=== PATIENT | female | born 1975 | race African-American/Black ===

== ENCOUNTER 2017-07-31 08:12 | Emergency (ER) | payer OTHER ==
[2017-07-31 08:19] VITALS: BP 121/80; PULSE 89; TEMP 98; BMI 28.2
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
[2017-07-31] MEDS ORDERED: TETANUS AND DIPHTHERIA TOXOID 0.5 ML DISP.SYRIN IM ONE (09:37)
== END 2017-07-31 09:32 | disposition home or self-care (01) ==
LOC: JERFT 08:12
PROC: 3E0234Z Introduction of Serum, Toxoid and Vaccine into Muscle, Percutaneous Approach (ICD-10-PCS; principal; 2017-07-31)
DX: M79.642 Pain in left hand (principal); Y04.1XXA Assault by human bite, initial encounter; Y93.89 Activity, other specified; Y92.89 Other specified places as the place of occurrence of the external cause; Y99.8 Other external cause status; Y07.03 Male partner, perpetrator of maltreatment and neglect
CPT/HCPCS: 73130-TC-LT; 84703; 90471; 90715; 99281-25

== ENCOUNTER 2019-01-26 10:45 | Emergency (ER) | payer OTHER ==
[2019-01-26 10:54] VITALS: BP 120/73; PULSE 81; TEMP 98.5; BMI 28.2
[2019-01-26 11:39] LABS: HCG,QUALITATIVE URINE Positive
[2019-01-26 12:04] LABS: EPI CELLS 4.2 /HPF (0-5/HPF); URINE APPEARANCE CLEAR; URINE BACTERIA 3.4 /hpf (NEGATIVE); URINE BILIRUBIN NEGATIVE (NEGATIVE); URINE CASTS 6 /hpf (0-8); URINE COLOR YELLOW; URINE GLUCOSE (UA) NEGATIVE (NEGATIVE); URINE KETONE NEGATIVE (NEGATIVE); URINE LEUK ESTERASE 2+ (NEGATIVE); URINE NITRITE NEGATIVE (NEGATIVE); URINE PROTEIN NEGATIVE (NEGATIVE); URINE WBC 10 /hpf (0-5)
[2019-01-26 12:36] LABS: URINE RBC 23.8 /hpf (0-4)
[2019-01-26 12:37] LABS: YEAST NONE SEEN (NEGATIVE)
--- NOTE | 2019-01-26 12:38 | PDOC ---
History of Present Illness - General Chief Complaint: Vaginal Sxs Stated Complaint: VAGINAL ISSUE Time Seen by Provider: 01/26/19 10:54 History Source: Patient Exam Limitations: No Limitations Past History - Travel Traveled outside of the country in the last 30 days: No Close contact w/someone who was outside of country & ill: No - Past Medical History Allergies/Adverse Reactions: Allergies Allergy/AdvReac Type Severity Reaction Status Date / Time No Known Allergies Allergy Verified 01/26/19 11:17 Home Medications: Ambulatory Orders Cephalexin Monohydrate [Keflex -] 500 mg PO BID #14 capsule 01/26/19 Asthma: No Cancer: No Cardiac Disorders: No COPD: No Diabetes: No HTN: No Seizures: No Thyroid Disease: No - Immunization History Immunization Up to Date: No - Suicide/Smoking/Psychosocial Hx Smoking History: Never smoked Have you smoked in the past 12 months: No Information on smoking cessation initiated: No Hx Alcohol Use: No Drug/Substance Use Hx: No Hx Substance Use Treatment: No Review of Systems - Review of Systems Able to Perform ROS?: Yes Comments:: 01/26/19 12:32 CONSTITUTIONAL: Absent: fever, chills, diaphoresis, generalized weakness, malaise, loss of appetite HEENT: Absent: rhinorrhea, nasal congestion, throat pain, throat swelling, difficulty swallowing, mouth swelling, ear pain, eye pain, visual Changes CARDIOVASCULAR: Absent: chest pain, loss of consciousness, palpitations, irregular heart rate, peripheral edema RESPIRATORY: Absent: cough, shortness of breath, dyspnea with exertion, orthopnea, wheezing, stridor, hemoptysis GASTROINTESTINAL: Absent: abdominal pain, abdominal distension, nausea, vomiting, diarrhea, constipation, melena, hematochezia GENITOURINARY: Present: vaginal discomfort, dysuria Absent: frequency, urgency, hesitancy, hematuria, flank pain, genital pain MUSCULOSKELETAL: Absent: myalgia, arthralgia, joint swelling SKIN: Absent: rash, itching, pallor HEMATOLOGIC/IMMUNOLOGIC: Absent: easy bleeding, easy bruising, lymphadenopathy, frequent infections ENDOCRINE: Absent: unexplained weight gain, unexplained weight loss, heat intolerance, cold intolerance NEUROLOGIC: Absent: headache, focal weakness or paresthesias, dizziness, unsteady gait, seizure, mental status changes, bladder or bowel incontinence PSYCHIATRIC: Absent: anxiety, depression, suicidal or homicidal ideation, hallucinations. Is the patient limited Portuguese proficient: No *Physical Exam - Vital Signs Last Vital Signs Temp Pulse Resp BP Pulse Ox 98.5 F 81 18 120/73 100 01/26/19 10:48 01/26/19 10:48 01/26/19 10:48 01/26/19 10:48 01/26/19 10:48 - Physical Exam Comments: 01/26/19 12:33 GENERAL: Well developed, well nourished. Awake and alert. No acute distress. ABDOMINAL: Soft. Non-tender. Non-distended. No rebound or guarding. No organomegaly. Normoactive bowel sounds. Pelvic: External genitalia normal without lesions. Vaginal vault is clear without blood or discharge. Cervix is long and closed. No cervical motion tenderness. Uterus is nontender and normal in size. Adnexa are nontender and without masses. SKIN: Warm and dry. Normal capillary refill. No rashes. No jaundice. NEUROLOGICAL: Alert, awake, appropriate. Cranial nerves 2-12 intact. No deficits to light touch and temperature in face, upper extremities and lower extremities. No motor deficits in the in face, upper extremities and lower extremities. Normoreflexic in the upper and lower extremities. Normal speech. Toes are down- going bilaterally. Gait is normal without ataxia. PSYCHIATRIC: Cooperative. Good eye contact. Appropriate mood and affect. ED Treatment Course - ADDITIONAL ORDERS Additional order review: Laboratory Results 01/26/19 11:17 Urine Color Yellow Urine Appearance Clear Urine pH 8.0 D Ur Specific [place] 1.016 Urine Protein Negative Urine Glucose (UA) Negative Urine Ketones Negative Urine Blood 2+ H Urine Nitrite Negative Urine Bilirubin Negative Urine Urobilinogen 1.0 Ur Leukocyte Esterase 2+ H Urine WBC (Auto) 10 Urine Casts (Auto) 6 U Epithel Cells (Auto) 4.2 Urine Bacteria (Auto) 3.4 Urine HCG, Qual Positive Medical Decision Making - Medical Decision Making 01/26/19 13:58 HPI: the patient is a 43-year-old female with past medical history who presents to the emergency department today for vaginal itching and dysuria. She states that her symptoms started 2 days ago. She tried using some [id number] wash to help with the itching with no relief. Patient states her last menstrual cycle was 12/18/18. Denies abdominal pain, nausea, vomiting, vaginal bleeding and discharge. A/P: Vaginal itching/ On exam essentially normal pelvic. No discharge UA obtained, 2+ leuks and 2+ blood with 10 WBCs. positive . We will treat for UTI. No medication recommended for vaginal itching given patient is . discharge home on Keflex. No abdominal pain patient possibly 4 weeks by dates will defer ultrasound until patient can see her OB. I discussed the physical exam findings, ancillary test results and final diagnoses with the patient. I answered all of the patient's questions. The patient was satisfied with the care received and felt comfortable with the discharge plan and treatment plan. The Patient agrees to follow up with the primary care physician/specialist within 24-72 hours. Return precautions were given. *DC/Admit/Observation/Transfer Diagnosis at time of Disposition: Vaginal irritation UTI (urinary tract infection) Qualifiers: Urinary tract infection type: acute cystitis Hematuria presence: with hematuria Qualified Code(s): N30.01 - Acute cystitis with hematuria - Discharge Dispostion Disposition: HOME Condition at time of disposition: Stable Decision to Admit order: No - Prescriptions Prescriptions: Cephalexin Monohydrate [Keflex -] 500 mg PO BID #14 capsule - Referrals Referrals: Rodrick Avila MD [Staff Physician] - - Patient Instructions Printed Discharge Instructions: DI for Vaginal Yeast Infection, DI for Urinary Tract Infection (UTI) Additional Instructions: You have a urinary tract infection. This caused by bacteria. You are also . Please follow up with your [facility] to make an appointment Please drink plenty of fluids. Take your antibiotics as prescribed. Finish the entire dose even if you feel better. You may take Tylenol as needed for pain Please follow up with your primary care doctor this week. Return to the emergency department if you have fevers, chills, nausea, vomiting , back pain, vaginal bleeding, abdominal pain, or have any changes in your symptoms. - Post Discharge Activity
== END 2019-01-26 12:58 | disposition home or self-care (01) ==
LOC: JERFT 10:45
DX: O26.891 Other specified pregnancy related conditions, first trimester (principal); O23.31 Infections of other parts of urinary tract in pregnancy, first trimester; Z3A.01 Less than 8 weeks gestation of pregnancy
CPT/HCPCS: 81003; 84703; 87086; 99281-25

== ENCOUNTER 2022-05-14 20:28 | Emergency (ER) | payer OTHER ==
[2022-05-14 20:41] VITALS: BP 127/79; PULSE 83; RESP 19; TEMP 98.4; BMI 28.3
[2022-05-14] MEDS ORDERED: ACETAMINOPHEN 1000 MG/100 ML BAG IVPB ONE (21:46)
[2022-05-14] MEDS ORDERED: ALPRAZolam 1 MG TABLET PO PRN (22:17)
[2022-05-14] MEDS ORDERED: ACETAMINOPHEN INJECTION 100 ML IVPB ONE (22:36)
== END 2022-05-15 00:18 | disposition home or self-care (01) ==
LOC: JER 20:28
PROC: 3E033GC Introduction of Other Therapeutic Substance into Peripheral Vein, Percutaneous Approach (ICD-10-PCS; principal; 2022-05-14)
DX: R51.9 Headache, unspecified (principal)
CPT/HCPCS: 93005; 93010; 99284-25

== ENCOUNTER 2024-10-03 13:06 | Emergency (ER) | payer OTHER ==
[2024-10-03 13:37] VITALS: BP 100/69; PULSE 76; RESP 19; TEMP 98.8; BMI 29.1
[2024-10-03] MEDS ORDERED: ACETAMINOPHEN 500 MG TABLET (FP) ONE (14:56)
[2024-10-03] MEDS ORDERED: ONDANSETRON *ODT* 4 MG TABLET ONE (14:57)
[2024-10-03] MEDS: ONDANSETRON *ODT* 4 MG TABLET SL ONE (15:19)
[2024-10-03] MEDS: ACETAMINOPHEN 500 MG TABLET (FP) PO ONE (15:19)
== END 2024-10-03 15:52 | disposition home or self-care (01) ==
LOC: JERFT 13:06
DX: R50.9 Fever, unspecified (principal); R11.0 Nausea; B34.9 Viral infection, unspecified; R63.0 Anorexia; R09.81 Nasal congestion; J10.1 Influenza due to other identified influenza virus with other respiratory manifestations; Z20.822 Contact with and (suspected) exposure to COVID-19
CPT/HCPCS: 0241U-QW; 71046-TC-FY; 99284-25; Q0162

== ENCOUNTER 2025-03-17 08:13 | Emergency (ER) | payer OTHER ==
[2025-03-17 08:21] VITALS: BP 123/77; PULSE 88; RESP 20; TEMP 98.4; BMI 32.5
[2025-03-17] MEDS ORDERED: ACETAMINOPHEN 500 MG TABLET (FP) ONE (09:58)
[2025-03-17] MEDS: ACETAMINOPHEN 500 MG TABLET (FP) PO ONE (09:59)
[2025-03-17 13:43] LABS: HCV DIAGNOSTIC IN-HOUSE W/RFLX NON-REACTIVE (NONREACTIVE)
[2025-03-17 18:22] LABS: HIV INTERPRETATION NEGATIVE (NEGATIVE)
== END 2025-03-17 10:11 | disposition home or self-care (01) ==
LOC: JER 08:13
DX: R20.2 Paresthesia of skin (principal); F43.9 Reaction to severe stress, unspecified
CPT/HCPCS: 36415; 86803; 87389; 93005; 93010; 99284-25